=== PATIENT | male | born 1995 | race Hispanic/Latino ===

== ENCOUNTER 2018-02-14 12:07 | Emergency (ER) | payer SELFPAY ==
[~2018-02-14] VITALS: Ht 162.6 cm; Wt 68.6 kg
[2018-02-14 12:59] LABS: URINE BILIRUBIN - DIPSTICK NEGATIVE (NEGATIVE); URINE BLOOD DIPSTICK NEGATIVE (NEGATIVE); URINE COLOR YELLOW; URINE GLUCOSE - DIPSTICK NEGATIVE (NEGATIVE); URINE KETONE NEGATIVE (NEGATIVE); URINE LEUK ESTERASE NEGATIVE (NEGATIVE); URINE NITRITE - DIPSTICK NEGATIVE (Negative); URINE PROTEIN - DIPSTICK NEGATIVE (NEG-TRACE); URINE UROBILINOGEN - DIPSTICK 0.2 E.U./dL (0.2)
[2018-02-14 13:00] LABS: URINE CLARITY SL CLOUDY
[2018-02-14 13:02] LABS: HEMATOCRIT 46.7 % (39.0-50.0); HEMOGLOBIN 15.9 g/dl (14.0-18.0); IMMATURE GRANULOCYTES 0.4 % (0.0-1.0); MEAN CELL VOLUME 90.2 fL CALC (80.0-100.0); MEAN CORPUSCULAR HGB 30.7 pG CALC (26.0-32.0); NEUT# 3.57 thou/uL (1.82-7.42); RED BLOOD COUNT 5.18 mill/uL (4.70-6.10); RED CELL DISTRI WIDTH 12.2 % (11.5-15.5)
[2018-02-14 13:10] LABS: ALBUMIN 4.8 g/dL (3.2-5.0); ALKALINE PHOSPHATASE 90 u/l (38-126); AMYLASE 53 u/l (30-110); ANION GAP 18 (6-22 (CALC)); BILIRUBIN, TOTAL 0.5 mg/dL (0.0-1.4); BUN 17 mg/dL (9-20); BUN/CREATININE RATIO 21 (12-20 (CALC)); CARBON DIOXIDE 27 mmol/l (22-30); CHLORIDE 100 mmol/l (95-108); CREATININE 0.8 mg/dL (0.7-1.3); GFR > 60 ML/MIN (>=60 (CALC)); GFR FOR AFR.AMER. > 60 ML/MIN (>=60 (CALC)); LIPASE 75 u/l (23-300); POTASSIUM 4.5 mmol/l (3.5-5.1); SGOT/AST 24 u/l (17-59); SGPT/ALT 31 u/l (21-72); SODIUM 141 mmol/l (137-146); TOTAL PROTEIN 8.1 g/dL (6.3-8.2)
[2018-02-14] MEDS ORDERED: MOTRIN800 MG PO (15:21)
[2018-02-14 15:37] VITALS: BP 122/75
== END 2018-02-14 15:46 | disposition home or self-care (01) | DRG 392 ==
LOC: ED 12:07
PROVIDERS: Emergency Medicine
DX: R10.32 Left lower quadrant pain (principal); N50.812 Left testicular pain; R11.0 Nausea